=== PATIENT | male | born 1950 | race Caucasian/White ===

== ENCOUNTER 2018-10-29 06:11 | Day surgery (SDC) | payer OTHER, MEDICARE ==
--- NOTE | 2018-10-25 16:30 | NUR ---
PT PRE TESTING INFORMATION AND RESULTS REVIEWED BY ANESTHESIOLOGIST DR MURPHY. NO NEW ORDERS AT THIS TIME.
[~2018-10-29] VITALS: Ht 175.3 cm; Wt 81.6 kg
[2018-10-29 06:37] VITALS: BP 143/73
[2018-10-29 15:13] VITALS: BP 142/69
== END 2018-10-29 14:55 | disposition home or self-care (01) ==
LOC: DS 06:11 → OR 07:30 → DS 07:30
DX: S46.012A Strain of muscle(s) and tendon(s) of the rotator cuff of left shoulder, initial encounter (principal); M75.42 Impingement syndrome of left shoulder; M25.812 Other specified joint disorders, left shoulder; M75.82 Other shoulder lesions, left shoulder; E11.9 Type 2 diabetes mellitus without complications; E78.5 Hyperlipidemia, unspecified; I25.2 Old myocardial infarction; K21.9 Gastro-esophageal reflux disease without esophagitis; I25.10 Atherosclerotic heart disease of native coronary artery without angina pectoris; I11.0 Hypertensive heart disease with heart failure; I50.9 Heart failure, unspecified; Z88.0 Allergy status to penicillin; Z79.01 Long term (current) use of anticoagulants; Z79.84 Long term (current) use of oral hypoglycemic drugs; Z79.82 Long term (current) use of aspirin; Z79.899 Other long term (current) drug therapy; Z95.818 Presence of other cardiac implants and grafts; Z98.890 Other specified postprocedural states; X58.XXXA Exposure to other specified factors, initial encounter; Y93.89 Activity, other specified; Y92.89 Other specified places as the place of occurrence of the external cause; Y99.8 Other external cause status
CPT/HCPCS: 82962; C1713; J0330; J1170; J2175; J2250; J2405; J2704; J3010; J3490; J7030